=== PATIENT | female | born 1985 | race Caucasian/White ===

== ENCOUNTER 2020-09-04 12:46 | Inpatient (IN) | payer OTHER ==
[~2020-09-04] VITALS: Ht 177.8 cm; Wt 136.1 kg
[~2020-09-04 12:46] MED LIST: MAXALT MLT ODT 55 M1 PO; NORCO 5-325 TA1 EACH PO; NUVARING VAGIN1 EACH; PROZAC20 M1 PO; SINGULAIR 10 MG10 M1 PO
[2020-09-04 12:48] VITALS: BP 111/80
[2020-09-04] MEDS ORDERED: WELLBUTRIN XL300 MG PO (12:50)
[2020-09-04 13:49] LABS: ABSOLUTE BASOPHILS 0.1 thou/uL (0.0-0.2); ABSOLUTE LYMPHOCYTES 1.5 thou/uL (0.8-5.3); ABSOLUTE MONOCYTES 0.5 thou/uL (0.0-1.2); BASOPHILS 0.7 %; EOSINOPHILS 0.1 %; HEMATOCRIT 39.3 % (37.0-47.0); HEMOGLOBIN 12.9 gm/dL (12.0-15.0); LYMPHOCYTES 12.6 %; MCH 28.9 pg (26.0-34.0); MCV 87.7 fL (80.0-100.0); MONOCYTES 3.9 %; MPV 7.1 fl. (7.2-11.1); NUCLEATED RBCS 0 /100WBC; PLATELET COUNT* 159 thou/uL (150-400); POLYS 82.7 %; RBC 4.48 mil/uL (4.20-5.00); RDW-CV 14.2 % (10.5-14.5)
[2020-09-04 13:59] LABS: CALCIUM 8.9 mg/dL (8.5-10.1); CREATININE 1.2 mg/dL (0.6-1.3); POTASSIUM 4.6 mmol/L (3.5-5.1)
[2020-09-04 14:10] LABS: ALBUMIN 3.1 g/dL (3.4-5.0); TOTAL BILIRUBIN 0.3 mg/dL (<0.1-1.0); TOTAL PROTEIN 7.6 g/dL (6.4-8.2)
[2020-09-04 14:13] LABS: APTT 24.8 Seconds (25.0-31.3); INR 1.1; PROTIME 11.8 Seconds (9.20-11.50)
[2020-09-04 15:49] LABS: URINE BILIRUBIN 1+ (Negative); URINE BLOOD 2+ (Negative); URINE CLARITY CLEAR; URINE COLOR DARK YELLOW; URINE GLUCOSE-RANDOM NEGATIVE (Negative); URINE KETONES TRACE (Negative); URINE LEUKOCYTES-REFLEX NEGATIVE (Negative); URINE NITRITE-REFLEX NEGATIVE (Negative); URINE PROTEIN TRACE (Negative); URINE SPECIFIC GRAVITY >= 1.030 (1.005-1.030); URINE UROBILINOGEN 0.2 E.U./dl (0.2-1.0)
[2020-09-04 15:52] LABS: ICTOTEST (BILI CONFIRMATORY) Negative (Negative)
[2020-09-04 15:56] LABS: BACTERIA-REFLEX >30 Many /HPF (None Seen); HYALINE CASTS >10 Many /LPF (None Seen); MUCUS >6 Heavy strn/LPF (None Seen); SQUAMOUS >10 Many /LPF (0-3)
[2020-09-04 15:57] LABS: CRYSTALS None Seen /LPF (None Seen); URINE WBC-REFLEX 0-5 Rare /HPF (0-5)
[2020-09-04 15:58] LABS: URINE RBC 0-2 Rare /HPF (0-2)
[2020-09-04 16:04] LABS: AMP/METHAMP Negative (Negative); BARBITURATES Negative (Negative); BENZODIAZEPINES Negative (Negative); COCAINE Negative (Negative); METHADONE Negative (Negative); OPIATES Negative (Negative); PCP Negative (Negative); THC Negative (Negative)
[2020-09-04 20:19] VITALS: BP 99/73
[2020-09-05] VITALS (7 sets, daily range): BP systolic 101–122; BP diastolic 72–89
[2020-09-05 03:27] LABS: HEMOGLOBIN 11.8 gm/dL (12.0-15.0); MCH 28.7 pg (26.0-34.0); MCHC 32.6 g/dL (28.0-37.0); MCV 87.8 fL (80.0-100.0); MPV 7.4 fl. (7.2-11.1); RBC 4.1 mil/uL (4.20-5.00); RDW-CV 13.8 % (10.5-14.5); WBC 12.7 thou/uL (4.0-11.0)
[2020-09-05 03:50] LABS: CALCIUM 8.7 mg/dL (8.5-10.1); CREATININE 1.1 mg/dL (0.6-1.3); MAGNESIUM 2.1 mg/dL (1.8-2.4); POTASSIUM 3.7 mmol/L (3.5-5.1); TROPONIN-I LEVEL 0.08 ng/mL (<0.06)
--- NOTE | 2020-09-05 09:24 | EKG ---
[place] [address] ELECTROCARDIOGRAM REPORT Name: JET GARCIA Room: [place] [address] ADM IN [facility]#: [id number] Admission: 09/04/20 Attend Phys: Juliet Fink, Discharge: Date of : 83 Date of Service: 09/04/20 1250 Report #: [id number] THIS REPORT FOR: //name// [facility] ED Test Date: 2020-09-04 Test Time: 12:50:55 Pat Name: JET ROSA ELENAMARYANNCRISTINA Department: Room: [facility] Gender: F Piper Helper: KAILYN : 1985 Requested By: David Cai Order Number: [id number] MD: Delroy Foster Measurements Intervals [place] Rate: 140 P: 0 DC: 110 QRS: 85 QRSD: 99 T: -28 QT: 317 QTc: 484 Interpretive Statements Sinus tachycardia Consider right atrial enlargement artifact noted Borderline T abnormalities, inferior leads Borderline prolonged QT interval No previous ECG available for comparison Electronically Signed On 09-05-2020 9:24:27 [employer] SALES [employer]ENT by Delroy Foster [email or web address] <ELECTRONICALLY SIGNED> By: Delroy Foster MD, FAC 09/05/20 0924 1250 1250 Delroy Foster MD, [facility] /EPI
--- NOTE | 2020-09-05 13:23 | 2DMMODE ---
[place] [address] 2 D/M-MODE ECHOCARDIOGRAM Name: RADHAJET B Room: [address] IN [place].#: [id number] Admission: 09/04/20 Attend Phys: Juliet Fink, Discharge: Date of : 83 Date of Service: 09/05/20 1322 Report #: [id number] THIS REPORT FOR: cc: Karo Roche, Karo Foster,Delroy Valdivia MD [facility] ~ APPROVED REPORT Study performed: 09/05/2020 11:04:41 EXAM: Comprehensive 2D, Doppler, and color-flow Echocardiogram Patient Location: In-Patient Room #: er Status: routine BSA: 2.48 HR: 109 bpm BP: 115/75 mmHg Rhythm: NSR Other Information Study Quality: Good Indications Abnormal ECG 2D Dimensions IVSd: 12.99 (7-11mm) LVOT Diam: 22.65 (18-24mm) LVDd: 40.59 mm PWd: 10.48 (7-11mm) Ascending Ao: 33.64 (22-36mm) LVDs: 30.78 (25-40mm) Aortic Root: 34.83 mm Volumes Left Atrial Volume (Systole) LA ESV Index: 11.60 mL/m2 Aortic Valve AoV Peak Geoffrey.: 0.76 m/s AO Peak Gr.: 2.33 mmHg LVOT Max P.88 mmHg AO Mean Gr.: 1.43 mmHg LVOT Mean P.42 mmHg LVOT Max V: 0.85 m/s AO V2 VTI: 10.05 cm LVOT Mean V: 0.55 m/s BERTA (VTI): 4.23 cm2 LVOT V1 VTI: 10.55 [place] [address] 2 D/M-MODE ECHOCARDIOGRAM Name: JET GARCIA Room: [address] IN [facility]#: [id number] Admission: 09/04/20 Attend Phys: Juliet Fink, Discharge: Date of : 83 Date of Service: 09/05/20 1322 Report #: [id number] Mitral Valve E/A Ratio: 0.60 MV Decel. Time: 85.89 ms MV E Max Geoffrey.: 0.34 m/s MV PHT: 24.91 ms MVA (PHT): 8.83 cm2 TDI E/Lateral E': 2.62 E/Medial E': 3.40 Medial E' Geoffrey.: 0.10 m/s Lateral E' Geoffrey.: 0.13 m/s Pulmonary Valve PV Peak Geoffrey.: 0.63 m/s PV Peak Gr.: 1.60 mmHg Tricuspid Valve RAP Estimate: 5.00 mmHg TR Peak Gr.: 26.77 mmHg RVSP: 31.00 mmHg PA Pressure: 31.00 mmHg Left Ventricle The left ventricle is normal size. There is normal LV segmental wall motion. There is normal left ventricular wall thickness. Left ventricular systolic function is normal. The left ventricular ejection fraction is within the normal range. LVEF is 50-55%. Grade I - abnormal relaxation pattern. Right Ventricle Right ventricle is dilated. Right ventricle is moderately hypokinetic. Atria The left atrium size is normal. Right atrium is dilated. Aortic Valve The aortic valve is normal in structure. No aortic regurgitation is present. There is no aortic valvular stenosis. Mitral Valve The mitral valve is normal in structure. There is no mitral valve regurgitation noted. No evidence of mitral valve stenosis. Tricuspid Valve The tricuspid valve is normal in structure. Mild tricuspid regurgitation. estimated pa pressure 40 [place] [address] 2 D/M-MODE ECHOCARDIOGRAM Name: JET GARCIA Room: [address] IN [facility]#: [id number] Admission: 09/04/20 Attend Phys: Juliet Fink, Discharge: Date of : 83 Date of Service: 09/05/20 1322 Report #: [id number] Pulmonic Valve The pulmonary valve is normal in structure. Mild pulmonic regurgitation. Great Vessels The aortic root is normal in size. IVC is normal in size and collapses >50% with inspiration. Pericardium There is no pericardial effusion. <Conclusion> LVEF is 50-55%. Right ventricle is dilated. Right ventricle is moderately hypokinetic. Mild tricuspid regurgitation. estimated pa pressure 40 mm Hg <ELECTRONICALLY SIGNED> By: Delroy Foster MD, FACC 09/05/20 1322 132 132 Delroy Foster MD, FACC /INF
--- NOTE | 2020-09-05 14:58 | CON ---
[address] [address] CONSULTATION Name: JET GARCIA iVola Room: [place] [address] ADM [place]#: [id number] Admission: 09/04/20 Attend Phys: Juliet Fink MD Discharge: Date of : 83 Report #: [id number] THIS REPORT FOR: cc: Karo Roche Bethany J. ~ Blick, David R. MD [facility] DATE OF SERVICE: 09/05/2020 CARDIOLOGY CONSULTATION HISTORY OF PRESENT ILLNESS: The patient is a 35-year-old single white female whom I was asked to see in the hospital today after she is noted to be tachycardic. The history is obtained from the patient as well as some records. The patient states she was doing well until the last several days, she has been lightheaded, nauseated, short of breath. She actually vomited one episode. She denied any fever or cough. She has had some chest tightness when she takes a deep breath. She has had no syncope or peripheral edema. The patient is not very active at this time. She denied any abdominal pain. She came to the Emergency Room yesterday, was noted to be tachycardic. Cardiology consultation was requested. PAST MEDICAL HISTORY: Significant for carpal tunnel surgery. She is a G0, last menstrual period was less than a month ago. She has no history of hypertension. Her cholesterol has been high in the past. No diabetes. MEDICATIONS: She does have a control ring in place. She takes Zyrtec for allergies, Paxil for depression, Motrin. ALLERGIES: SHE HAS AN ALLERGY TO STEROID DOSEPAK, WHICH ELEVATES HER BLOOD PRESSURE. FAMILY HISTORY: Negative for heart disease. SOCIAL HISTORY: She is single, lives in [place] by herself. No smoking. REVIEW OF SYSTEMS: She is overweight, being 5 feet, 10 inches, 300 pounds. She does snore at night. She has exercise-induced asthma. No liver disease. Kidney stone in the past. No cancer noted. She did see a counselor in the past. No chronic skin condition. PHYSICAL EXAMINATION: GENERAL: Revealed a large young female, who appeared in no distress, lying on a stretcher. VITAL SIGNS: Blood pressure is 104/76, pulse is 120. [place] [address] CONSULTATION Name: ROSA ELENAFRANCES SHAYZOIE Rod Room: [address]#: [id number] Admission: 09/04/20 Attend Phys: Juliet Fink MD Discharge: Date of : 83 Report #: [id number] HEENT: She was anicteric. Conjunctivae pink. Mucous membranes are moist. NECK: Veins are difficult to assess due to obesity. CHEST: Clear to auscultation. CARDIOVASCULAR: Regular, tachycardia. ABDOMEN: Obese. EXTREMITIES: Had no edema. Dorsalis pedis pulse 2+. SKIN: Cool and dry. NEUROLOGIC: Nonfocal. RADIOLOGICAL DATA: Her ECG on admission showed a sinus tachycardia, nonspecific T-wave changes. Her workup in the Emergency Room yesterday; she had a portable chest x-ray, normal heart size, clear lung gamez. She had a CT scan of the chest using a PE protocol that showed pulmonary emboli that was extensive. LABORATORY WORK: Sodium 135, potassium 3.7, creatinine 1.1. Liver function studies were normal. Troponin was 0.16. BNP 9337. TSH 2.0. White blood cell count was 12.7, hemoglobin 11.8. IMPRESSION AND RECOMMENDATIONS: 1. Sinus tachycardia. Suspect secondary to hypoxia and dehydration. I would encourage fluid intake. 2. Pulmonary embolus. I would recommend anticoagulation. I would check echocardiogram. 3. Morbid obesity. 4. Dizzy. Suspect dehydration. 5. Nausea and vomiting. Possible gastroenteritis. <ELECTRONICALLY SIGNED> By: Delroy Foster MD, [facility] 09/05/20 1458 0842 [id number] Foster MD, FACC /nt
[2020-09-06 02:06] LABS: GLYCOHEMOGLOBIN (HGB A1C) 5.4 % (4.8-5.6)
[2020-09-06 03:54] VITALS: BP 130/88
[2020-09-06 05:29] LABS: HEMATOCRIT 33.6 % (37.0-47.0); HEMOGLOBIN 11.2 gm/dL (12.0-15.0); MCH 29.4 pg (26.0-34.0); MCHC 33.4 g/dL (28.0-37.0); MCV 88.2 fL (80.0-100.0); RBC 3.81 mil/uL (4.20-5.00); RDW-CV 14.2 % (10.5-14.5); WBC 10.2 thou/uL (4.0-11.0)
--- NOTE | 2020-09-06 05:44 | NUR ---
PT A&OX4, VSS ON 1L NC, PT ON BEDREST, IV FLUIDS INFUSINGS ORDERED, PATIENT ST ON TELE MONITOR, CO C/O PAIN THIS SHIFT. PT SLEEPING WELL, WILL CONTINUE TO MONITOR.
[2020-09-06 05:46] LABS: ALBUMIN 2.6 g/dL (3.4-5.0); CALCIUM 8.3 mg/dL (8.5-10.1); CREATININE 0.9 mg/dL (0.6-1.3); MAGNESIUM 2.2 mg/dL (1.8-2.4); POTASSIUM 3.6 mmol/L (3.5-5.1); TOTAL BILIRUBIN 0.3 mg/dL (<0.1-1.0); TOTAL PROTEIN 6.4 g/dL (6.4-8.2)
--- NOTE | 2020-09-06 07:15 | NUR ---
CHANGE OF SHIFT REPORT GIVEN PATIENT SEEN AT BEDSIDE IN BED ASLEEP ASSUMED PATIENT CARE
[2020-09-06 08:00] VITALS: BP 136/94
[2020-09-06 12:00] VITALS: BP 131/83
--- NOTE | 2020-09-06 12:41 | NUR ---
Pt is A&O. Resides at home alone. Active and independent. No DME. No hx of HH or SNF. Consult placed for CM to check the cost of Bhavin, FANNY to call prescription into [facility] in [place] [phone], CM to call and check the cost and CM will provide Pt with a 30 day free copay card. Anticipate dc to home tomorrow, work on weaning o2.
--- NOTE | 2020-09-06 13:45 | NUR ---
CM CALLED IN PRESCRIPTION FOR ELIQUIS ORDERED HERE IN HOSPITAL TO [facility] IN [place] [phone].
[2020-09-06 16:00] VITALS: BP 128/86
[2020-09-06 22:30] VITALS: BP 129/98
--- NOTE | 2020-09-07 04:36 | NUR ---
PT ALERT AND ORIENTED ON ROOM AIR. SHE DID NOT REPORT ANY NAUSEA/VOMITING. SHE REPORTED PAIN IN HER UPPER ABDOMEN UNDER BREASTS SHE SAYS FELT LIKE SHE HAD A FULL FEELING LIKE AFTER YOU EAT TOO MUCH. SHE SAID THE PAIN WAS TOLERABLE. BOUNDING/PRESSURE TYPE PAIN. SHE IS ABLE TO AMBULATE WELL ON OWN. TOOK A SHOWER BEFORE BED. SLEEP STUDY IN PROGRESS OVERNIGHT.
[2020-09-07] MEDS ORDERED: ELIQUIS5 MG PO (08:14)
[2020-09-07 08:30] VITALS: BP 140/93
[2020-09-07 08:57] LABS: HEMATOCRIT 36.8 % (37.0-47.0); HEMOGLOBIN 12.1 gm/dL (12.0-15.0); MCH 28.7 pg (26.0-34.0); MCHC 32.9 g/dL (28.0-37.0); MCV 87.4 fL (80.0-100.0); MPV 7.8 fl. (7.2-11.1); RBC 4.22 mil/uL (4.20-5.00); RDW-CV 13.9 % (10.5-14.5); WBC 10.3 thou/uL (4.0-11.0)
--- NOTE | 2020-09-07 11:32 | NUR ---
ASSUMED CARE OF PT AT 0730. PT SITTING UP IN BED WAITING FOR BREAKFAST. A&0X4, DENIES ANY PAIN OR SHORTNESS OF BREATH AT THIS TIME. TRACING ST ON THE THEATRE INSTRUCTOR-LOW 100'S. ON RA SAT UPPER 90'S. PT UP AD KESHAWN IN ROOM. PT GIVEN PRN MIRALAX FOR CONSTIPATION. PT GOAL FOR TODAY IS DISCHARGE PLANNING TO HOME AFTER RT SAT REST AND EXERCUSE. AM ASSESSMENT CHARTED. MEDICATIONS PER OCT. PT REPOSITIONS SELF. HOURLY ROUNDING OBSERVED. BED IN LOW POSITION. CALL LIGHT WITHIN REACH. WILL CONTINUE PLAN OF CARE.
--- NOTE | 2020-09-07 11:37 | NUR ---
CM provided Pt with an Storone copay card, script called into [facility] in [place]. Pt does not need home o2 set up at this time. DC to home today, no needs.
[2020-09-07 12:17] VITALS: BP 140/93
--- NOTE | 2020-09-07 13:32 | NUR ---
PT COMPLETED 02 SAT REST AND EXERCISE. DOES NOT REQUIRE OXYGEN. DISCHARGE ORDERS RECEIVED. DISCHARGE INSTRUCTIONS, CARE NOTES, SCRIPTS AND FOLLOW UP APPTS GIVEN TO PT. PT COMMUNICATES UNDERSTANDING OF DISCHARGE TEACHING. IV AND IRONWORKER WIRE FENCE ERECTOR REMOVED. PT DISCHARGED WITH ALL BELONGINGS AND PAPERWORK VIA WHEELCHAIR WITH NURSING STAFF TO FAMILY OWN PERSONAL VEHICLE.
== END 2020-09-07 13:32 | disposition home or self-care (01) | DRG 175 ==
LOC: M.ERS 12:46 → M.TBA-ER 15:01 → M.2W 09-05 18:32
PROVIDERS: Emergency Medicine Emergency Medical Services; Internal Medicine; ADMIT Internal Medicine; ATTEND Internal Medicine
DX: I26.99 Other pulmonary embolism without acute cor pulmonale (principal); J96.01 Acute respiratory failure with hypoxia; I82.431 Acute embolism and thrombosis of right popliteal vein; R77.8 Other specified abnormalities of plasma proteins; F41.9 Anxiety disorder, unspecified; E86.0 Dehydration; E66.01 Morbid (severe) obesity due to excess calories; R00.0 Tachycardia, unspecified; Z20.822 Contact with and (suspected) exposure to COVID-19; Z88.8 Allergy status to other drugs, medicaments and biological substances; Z79.899 Other long term (current) drug therapy; Z28.21 Immunization not carried out because of patient refusal